=== PATIENT | female | born 1985 | race Caucasian/White ===

== ENCOUNTER 2017-09-07 22:21 | Emergency (ER) | payer SELFPAY ==
[~2017-09-07] VITALS: Ht 167.6 cm; Wt 75.0 kg
[2017-09-07 22:39] VITALS: Ht 167.6 cm; Wt 75.0 kg
[2017-09-08] MEDS ORDERED: ONDANSETRON 4 MG INJ IV STA (01:01)
[2017-09-08] MEDS ORDERED: SOD CHLORIDE 0.9% 1,000 ML IV STA (01:01)
--- NOTE | 2017-09-08 01:47 | RADRPT ---
PROCEDURE: Abdominal ultrasound, limited. CLINICAL INDICATION: Abdominal pain. TECHNIQUE: Multiple real-time images were acquired of the patient's right upper abdomen utilizing a high resolution transducer. COMPARISON: None FINDINGS: The liver demonstrates normal echogenicity and size measuring 15.2 cm. There is no focal mass or in trahepatic biliary ductal dilatation. The portal vein is patent. The gallbladder is not distended. No gallstones are identified. There is no pericholecystic fluid or gallbladder wall thickening. The common bile duct measures 2.1 mm in maximal dimension. The visualized portions of the pancreas are unremarkable. No free fluid is identified. The right kidney is normal size and echogenicity measuring 10.5 cm. There is no focal renal mass or echogenic calculus identified. There is no obstructive uropathy. The right ovary is visualized with normal flow. There is a hypoechoic cyst within the right ovary me asuring 4.3 x 4.2 x 3.9 cm. IMPRESSION: Unremarkable right upper abdominal ultrasound. Right ovarian 4.3 cm cyst. .Kalia Coughlin MD, MD Date Time Electronically viewed and signed by .Kalia Coughlin MD, MD on 09/08/2017 01:46 .T/
[2017-09-08 02:39] LABS: ADD UMIC YES; UR ASCORBIC ACID NEGATIVE (NEGATIVE); UR BILIRUBIN (Dip) NEGATIVE (NEGATIVE); UR BLOOD (Dip) NEGATIVE (NEGATIVE); UR CLARITY SLIGHTLY CLOUDY (CLEAR); UR COLOR YELLOW (YELLOW); UR GLUCOSE (Dip) NEGATIVE (NEGATIVE); UR KETONES (Dip) NEGATIVE (NEGATIVE); UR LEUKOCYTE ESTERASE (Dip) TRACE Leu/ul (NEGATIVE); UR MUCUS FEW /HPF (NONE SEEN); UR NITRITE (Dip) NEGATIVE (NEGATIVE); UR RBC 0 /HPF (0-5); UR SQUAMOUS EPITHELIAL CELL FEW /HPF (FEW); UR TOTAL PROTEIN (Dip) NEGATIVE (NEGATIVE); UR UROBILINOGEN (Dip) 1+ mg/dL (NEGATIVE)
[2017-09-08 02:39] LABS: ALBUMIN/GLOBULIN RATIO 1.17; BILIRUBIN,INDIRECT 0.1 mg/dl (0-1.1); BILIRUBIN,TOTAL 0.1 mg/dl (0.2-1.3); CREATININE 0.67 mg/dl (0.44-1.00); POTASSIUM 3.9 mmol/L (3.5-5.1); TOTAL PROTEIN 7.4 g/dl (6.1-8.1)
[2017-09-08 02:47] LABS: BASOPHIL # 0.1 10^3/ul (0.0-0.1); BASOPHILS % 1.2 % (0.0-2.0); EOSINOPHILS # 0.3 10^3/ul (0.0-0.5); EOSINOPHILS % 3.6 % (0.0-7.0); HEMATOCRIT 40.1 % (37.0-47.0); HEMOGLOBIN 13.1 g/dl (12.0-16.0); LYMPHOCYTES # 3.6 10^3/ul (0.8-2.9); LYMPHOCYTES % 43.2 % (15.0-51.0); MEAN CORPUSCULAR HEMOGLOBIN 25.4 pg (29.0-33.0); MEAN CORPUSCULAR HGB CONC 32.7 g/dl (32.0-37.0); MEAN CORPUSCULAR VOLUME 77.7 fl (82.0-101.0); MEAN PLATELET VOLUME 8.8 fl (7.4-10.4); MONOCYTE # 0.7 10^3/ul (0.3-0.9); MONOCYTES % 8.6 % (0.0-11.0); NEUTROPHIL # 3.6 10^3/ul (1.6-7.5); NEUTROPHILS % 43.2 % (39.0-77.0); PLATELET COUNT 447 10^3/UL (140-415); RED BLOOD COUNT 5.16 10^6/ul (4.20-5.40); RED CELL DISTRIBUTION WIDTH 14.2 % (11.5-14.5); WHITE BLOOD COUNT 8.4 10^3/ul (4.8-10.8)
[2017-09-08] MEDS ORDERED: ONDA4TAB8 PO (03:08)
[2017-09-08 03:33] VITALS: BP 120/65; PULSE 65; RESP 20; TEMP 98.6
--- NOTE | 2017-09-08 03:57 | ERD ---
ER Documentation Chief Complaint Chief Complaint mid abd pain w/ vomiting x 15 days HPI 31-year-old female complaining of mid abdominal pain with vomiting. Patient was diagnosed with H pylori taking medication without complication. Patient states that the medication causes her nausea. She has had episodes of vomiting and feels weak. Is all started today. She has been taking the medication for the last 13 years. Patient has diffuse abdominal pain but denies any is in bowel movement. Denies medical problems. NKDA. Surgical history: . ROS All systems reviewed and are negative except as per history of present illness. Medications Home Meds Active Scripts Ondansetron Hcl* (Zofran*) 4 Mg Tablet, 4 MG PO Q6H for NAUSEA AND/OR VOMITING, #30 TAB Prov:SYDNEE BARRIENTOS PA-C 09/08/17 PMhx/Soc Medical and Surgical Hx: pt denies Medical Hx, pt denies Surgical Hx History of Surgery: No Anesthesia Reaction: No Hx Neurological Disorder: No Hx Respiratory Disorders: No Hx Cardiac Disorders: No Hx Psychiatric Problems: No Hx Miscellaneous Medical Probl: No Hx Alcohol Use: No Hx Substance Use: No Hx Tobacco Use: No Smoking Status: Never smoker Physical Exam Vitals Vital Signs Date Time Temp Pulse Resp B/P Pulse Ox O2 Delivery O2 Flow Rate FiO2 09/08/17 03:33 98.6 65 20 120/65 100 Room Air 09/07/17 22:39 98.3 89 20 142/71 99 Physical Exam GENERAL: The patient is well-appearing, well-nourished, in no acute distress CHEST: Clear to auscultation bilaterally. There are no rales, wheezes or rhonchi. HEART: Regular rate and rhythm. No murmurs, clicks, rubs or gallops. No S3 or S4. ABDOMEN: Soft, mild tenderness palpation the right upper quadrant. No rebound tenderness. No other abdominal pain on palpation. Good bowel sounds. No rebound or guarding. No gross peritonitis. No gross organomegaly or masses. Result Diagram: 09/08/1714209/08/17142 Results 24 hrs Laboratory Tests Test 09/08/17 01:12 09/08/17 01:43 Urine Color YELLOW Urine Clarity SLIGHTLY CLOUDY Urine pH 6.0 Urine Specific [place] 1.030 Urine Ketones NEGATIVEmg/dL Urine Nitrite NEGATIVEmg/dL Urine Bilirubin NEGATIVEmg/dL Urine Urobilinogen 1+mg/dL Urine Leukocyte Esterase TRACELeu/ul Urine Microscopic RBC 0/HPF Urine Microscopic WBC 2/HPF Urine Squamous Epithelial Cells FEW/HPF Urine Mucus FEW/HPF Urine Hemoglobin NEGATIVEmg/dL Urine Glucose NEGATIVEmg/dL Urine Total Protein NEGATIVEmg/dl White Blood Count 8.410^3/ul Red Blood Count 5.1610^6/ul Hemoglobin 13.1g/dl Hematocrit 40.1% Mean Corpuscular Volume 77.7fl Mean Corpuscular Hemoglobin 25.4pg Mean Corpuscular Hemoglobin Concent 32.7g/dl Red Cell Distribution Width 14.2% Platelet Count 07230^3/UL Mean Platelet Volume 8.8fl Neutrophils % 43.2% Lymphocytes % 43.2% Monocytes % 8.6% Eosinophils % 3.6% Basophils % 1.2% Nucleated Red Blood Cells % 0.0/100WBC Neutrophils # 3.610^3/ul Lymphocytes # 3.610^3/ul Monocytes # 0.710^3/ul Eosinophils # 0.310^3/ul Basophils # 0.110^3/ul Nucleated Red Blood Cells # 0.010^3/ul Sodium Level 140mmol/L Potassium Level 3.9mmol/L Chloride Level 104mmol/L Carbon Dioxide Level 26mmol/L Anion Gap 14 Blood Urea Nitrogen 16mg/dl Creatinine 0.67mg/dl Glucose Level 88mg/dl Calcium Level 9.0mg/dl Total Bilirubin 0.1mg/dl Direct Bilirubin 0.00mg/dl Indirect Bilirubin 0.1mg/dl Aspartate Amino Transf (AST/SGOT) 30IU/L Alanine Aminotransferase (ALT/SGPT) 35IU/L Alkaline Phosphatase 72IU/L Total Protein 7.4g/dl Albumin 4.0g/dl Globulin 3.40g/dl Albumin/Globulin Ratio 1.17 Lipase 227U/L Serum HCG, Qualitative NEGATIVE Current Medications Medications (Trade) Dose Ordered Sig/Clara Route PRN Reason Start Time Stop Time Status Last Admin Dose Admin Sodium Chloride (NS) 1,000 ml @ 1,000 mls/hr Q1H STAT IV 09/08/17 01:01 09/08/17 02:01 DC 09/08/17 02:41 Ondansetron HCl (Zofran Inj) 4 mg ONCE STAT IV 09/08/17 01:01 09/08/17 01:02 DC 09/08/17 02:41 Procedures/MDM ER Course: 1 L NS given in ED. Zofran given in ED MDM: 31-year-old female complaining of epigastric pain. A low suspicion for choledocholithiasis, cholecystitis, or cholangitis. A low suspicion for dehydration. I have low suspicion for peptic ulcer disease or perforated peptic ulcer disease. I have low suspicion for bowel obstruction. Patient will be discharged with antiemetics to help with symptoms. Patient is told symptoms change or worsen to return to the ER. All questions answered discharge. Departure Diagnosis: Primary Impression: Abdominal pain Condition: Stable Patient Instructions: Abdominal Pain Referrals: [facility] YOU HAVE RECEIVED A MEDICAL SCREENING EXAM AND THE RESULTS INDICATE THAT YOU DO NOT HAVE A CONDITION THAT REQUIRES URGENT TREATMENT IN THE EMERGENCY DEPARTMENT. FURTHER EVALUATION AND TREATMENT OF YOUR CONDITION CAN WAIT UNTIL YOU ARE SEEN IN YOUR DOCTORS OFFICE WITHIN THE NEXT 1-2 DAYS. IT IS YOUR RESPONSIBILITY TO MAKE AN APPOINTMENT FOR FOLOW-UP CARE. IF YOU HAVE A PRIMARY DOCTOR --you should call your primary doctor and schedule an appointment IF YOU DO NOT HAVE A PRIMARY DOCTOR YOU CAN CALL OUR PHYSICIAN REFERRAL HOTLINE AT IF YOU CAN NOT AFFORD TO SEE A PHYSICIAN YOU CAN CHOSE FROM THE FOLLOWING [facility] [address] [facility] [facility] [address] [facility] [facility] [address] [facility] [facility] [address] [facility]. [facility] [address] [facility]. [facility]. [address] Additional Instructions: FOLLOW UP WITH YOUR PRIMARY CARE PHYSICIAN TOMORROW.Return to this facility if you are not improving as expected. SYDNEE BARRIENTOS PA-C Sep 08, 2017 03:57
== END 2017-09-08 03:35 | disposition home or self-care (01) ==
LOC: FTE 22:21
DX: R10.11 Right upper quadrant pain (principal); R10.13 Epigastric pain; R11.2 Nausea with vomiting, unspecified
CPT/HCPCS: 36415; 76705; 80053; 81001; 83690; 84703; 85025; 96374; 99285; J2405; J7030